=== PATIENT | female | born 1960 | race American Indian/Alaskan Native ===

== ENCOUNTER 2024-08-01 18:36 | Inpatient (IN) | payer MEDICARE, MEDICAID ==
[2024-08-01] MEDS: Sodium Chloride 0.9% 1,000 ML IV ONE ×2 (18:55→21:00)
[2024-08-01 19:00] LABS: BASOPHILS ABSOLUTE AUTO 0.07 10^3/uL (0.00-0.50); BASOPHILS PERCENT AUTO 1.1 % (0-1); EOSINOPHILS ABSOLUTE AUTO 0.23 10^3/uL (0.00-1.50); EOSINOPHILS PERCENT AUTO 3.5 % (0-6); HEMATOCRIT 32.2 % (37.0-47.0); HEMOGLOBIN 10.7 g/dL (12.0-16.0); IMMATURE GRAN ABSOLUTE AUTO 0.01 10^3/uL (0.00-0.49); IMMATURE GRAN PERCENT AUTO 0.2 % (0.0-4.9); LYMPHOCYTES ABSOLUTE AUTO 1.44 10^3/uL (0.60-5.00); LYMPHOCYTES PERCENT AUTO 21.9 % (24-44); MEAN CORPUSCULAR HGB CONC 33.2 g/dL (32.0-36.0); MEAN CORPUSCULAR VOLUME 90.2 fL (83.0-97.0); MONOCYTES ABSOLUTE AUTO 0.59 10^3/uL (0.00-1.50); NEUTROPHILS ABSOLUTE AUTO 4.23 x10^3/uL (1.80-8.00); NEUTROPHILS PERCENT AUTO 64.3 % (41-71); PLATELET COUNT,PLT 89 10^3/uL (150-400); RED BLOOD CELL COUNT 3.57 x10^6/uL (4.00-5.50); WHITE BLOOD CELL COUNT,WBC 6.6 10^3/uL (4.0-11.0)
[2024-08-01 19:19] LABS: ALBUMIN 1.4 g/dL (3.4-5.0); ALKALINE PHOSPHATASE 313 U/L (46-116); BILIRUBIN TOTAL 3.5 mg/dL (0.0-1.0); BLOOD UREA NITROGEN,BUN 26 mg/dL (7-18); C-REACTIVE PROTEIN 1.65 mg/dL (<=0.50); CALCIUM 8.7 mg/dL (8.4-10.1); CARBON DIOXIDE,CO2 20 mmol/L (21-32); CHLORIDE,CL 109 mEq/L (98-106); GLUCOSE RANDOM 130 mg/dL (75-99); LIPASE 51 U/L (16-77); POTASSIUM,K 3.4 mEq/L (3.5-5.0); SODIUM,NA 140 mEq/L (136-145)
[2024-08-01 19:21] LABS: ALANINE AMINOTRANSFERASE,ALT 359 U/L (12-78); ASPARTATE AMNIOTRANSFERASE,AST 394 U/L (15-37); CREATININE 2.9 mg/dL (0.6-1.0); ESTIMATED GFR 17 mL/min (>=60)
[2024-08-02] MEDS ORDERED: Acetaminophen 325 MG Tab PO PRN (01:02)
[2024-08-02] MEDS: Sodium Chloride 0.9% 1,000 ML IV SCH (01:43)
[2024-08-02] MEDS: Pantoprazole 40 MG Tab.CR PO SCH (06:20)
[2024-08-02] MEDS ORDERED: Formoterol/Mometasone 200-5 MCG 8.8 GM Inhaler IH SCH (08:00)
[2024-08-02] MEDS ORDERED: GABAPENTIN 600 MG PO SCH (08:00)
[2024-08-02 08:12] LABS: BASOPHILS ABSOLUTE AUTO 0.04 10^3/uL (0.00-0.50); BASOPHILS PERCENT AUTO 0.7 % (0-1); EOSINOPHILS ABSOLUTE AUTO 0.33 10^3/uL (0.00-1.50); EOSINOPHILS PERCENT AUTO 5.9 % (0-6); HEMATOCRIT 28.8 % (37.0-47.0); HEMOGLOBIN 9.5 g/dL (12.0-16.0); IMMATURE GRAN ABSOLUTE AUTO 0.01 10^3/uL (0.00-0.49); IMMATURE GRAN PERCENT AUTO 0.2 % (0.0-4.9); LYMPHOCYTES ABSOLUTE AUTO 1.11 10^3/uL (0.60-5.00); LYMPHOCYTES PERCENT AUTO 19.7 % (24-44); MEAN CORPUSCULAR HEMOGLOBIN 30.1 pg (27.0-32.0); MEAN CORPUSCULAR VOLUME 91.1 fL (83.0-97.0); MONOCYTES PERCENT AUTO 8.9 % (0-10); NEUTROPHILS ABSOLUTE AUTO 3.64 x10^3/uL (1.80-8.00); NEUTROPHILS PERCENT AUTO 64.6 % (41-71); PLATELET COUNT,PLT 74 10^3/uL (150-400); RED BLOOD CELL COUNT 3.16 x10^6/uL (4.00-5.50); WHITE BLOOD CELL COUNT,WBC 5.6 10^3/uL (4.0-11.0)
[2024-08-02 08:46] LABS: C-REACTIVE PROTEIN 1.49 mg/dL (<=0.50); CALCIUM 8.1 mg/dL (8.4-10.1); EST CRCL DRUG DOSING (CG) 16.21 mL/min; POTASSIUM,K 3.7 mEq/L (3.5-5.0); PROTEIN TOTAL,TP 8.1 g/dL (6.4-8.2)
[2024-08-02] MEDS: Lisinopril 20 MG Tab PO SCH (08:46)
[2024-08-02] MEDS: amLODIPine 10 MG Tab PO SCH (08:46)
[2024-08-02 08:50] LABS: CREATININE 2.7 mg/dL (0.6-1.0)
[2024-08-02 09:22] LABS: APPEARANCE,URINE SLIGHTLY CLOUDY (CLEAR); COLOR,URINE AMBER (YELLOW); GLUCOSE,URINE NEGATIVE (NEGATIVE); KETONES,URINE NEGATIVE (NEGATIVE); LEUKOCYTE ESTERASE,URINE SMALL (NEGATIVE); NITRITE,URINE NEGATIVE (NEGATIVE); OCCULT BLOOD,URINE NEGATIVE (NEGATIVE); PH,URINE 5.5 (4.5-8.0); PROTEIN,URINE 30 mg/dL (NEGATIVE); UROBILINOGEN,URINE >=8.0 EU/dL (0.2-1.0)
[2024-08-02 09:24] LABS: BILIRUBIN,URINE SMALL (NEGATIVE)
[2024-08-02 09:29] LABS: BACTERIA,URINE MANY /HPF (NOT SEEN); EPITHELIAL CELLS,URINE FEW /HPF (NOT SEEN); WBC,URINE 40-50 /HPF (0-5)
[2024-08-02] MEDS: Rosuvastatin 10 MG Tab PO SCH (12:02)
[2024-08-02] MEDS: Gabapentin 300 MG Cap PO SCH (13:03)
[2024-08-02] MEDS: cefTRIAXone 1 GM Vial IVPUSH SCH (14:16)
[2024-08-03 09:15] LABS: BASOPHILS ABSOLUTE AUTO 0.07 10^3/uL (0.00-0.50); BASOPHILS PERCENT AUTO 1.2 % (0-1); EOSINOPHILS ABSOLUTE AUTO 0.38 10^3/uL (0.00-1.50); EOSINOPHILS PERCENT AUTO 6.7 % (0-6); HEMATOCRIT 29.7 % (37.0-47.0); HEMOGLOBIN 9.9 g/dL (12.0-16.0); IMMATURE GRAN ABSOLUTE AUTO 0.01 10^3/uL (0.00-0.49); IMMATURE GRAN PERCENT AUTO 0.2 % (0.0-4.9); LYMPHOCYTES ABSOLUTE AUTO 1.69 10^3/uL (0.60-5.00); LYMPHOCYTES PERCENT AUTO 29.9 % (24-44); MEAN CORPUSCULAR HEMOGLOBIN 30.3 pg (27.0-32.0); MEAN CORPUSCULAR HGB CONC 33.3 g/dL (32.0-36.0); MEAN CORPUSCULAR VOLUME 90.8 fL (83.0-97.0); MONOCYTES ABSOLUTE AUTO 0.45 10^3/uL (0.00-1.50); NEUTROPHILS ABSOLUTE AUTO 3.05 x10^3/uL (1.80-8.00); PLATELET COUNT,PLT 66 10^3/uL (150-400); RED BLOOD CELL COUNT 3.27 x10^6/uL (4.00-5.50); WHITE BLOOD CELL COUNT,WBC 5.7 10^3/uL (4.0-11.0)
[2024-08-03 09:32] LABS: C-REACTIVE PROTEIN 1.45 mg/dL (<=0.50); CALCIUM 8.1 mg/dL (8.4-10.1); CREATININE 2.4 mg/dL (0.6-1.0); EST CRCL DRUG DOSING (CG) 18.24 mL/min; POTASSIUM,K 3.9 mEq/L (3.5-5.0); PROTEIN TOTAL,TP 8.1 g/dL (6.4-8.2)
[2024-08-03] MEDS ORDERED: Albuterol 0.083% 2.5 MG/3 ML Neb Soln INH PRN (10:42)
[2024-08-03] MEDS: Sodium Chloride 0.9% 1,000 ML IV SCH (18:48)
[2024-08-03] MEDS: Sertraline 25 MG Tab PO SCH (19:39)
[2024-08-03 23:41] LABS: AMMONIA 128 umol/L (6-47)
[2024-08-04 09:02] LABS: BASOPHILS ABSOLUTE AUTO 0.04 10^3/uL (0.00-0.50); BASOPHILS PERCENT AUTO 0.7 % (0-1); EOSINOPHILS ABSOLUTE AUTO 0.39 10^3/uL (0.00-1.50); EOSINOPHILS PERCENT AUTO 7.3 % (0-6); HEMATOCRIT 26.3 % (37.0-47.0); HEMOGLOBIN 8.9 g/dL (12.0-16.0); IMMATURE GRAN ABSOLUTE AUTO 0.01 10^3/uL (0.00-0.49); IMMATURE GRAN PERCENT AUTO 0.2 % (0.0-4.9); LYMPHOCYTES ABSOLUTE AUTO 1.39 10^3/uL (0.60-5.00); LYMPHOCYTES PERCENT AUTO 25.9 % (24-44); MEAN CORPUSCULAR HEMOGLOBIN 30.4 pg (27.0-32.0); MEAN CORPUSCULAR HGB CONC 33.8 g/dL (32.0-36.0); MEAN CORPUSCULAR VOLUME 89.8 fL (83.0-97.0); MONOCYTES ABSOLUTE AUTO 0.45 10^3/uL (0.00-1.50); MONOCYTES PERCENT AUTO 8.4 % (0-10); NEUTROPHILS ABSOLUTE AUTO 3.08 x10^3/uL (1.80-8.00); NEUTROPHILS PERCENT AUTO 57.5 % (41-71); PLATELET COUNT,PLT 56 10^3/uL (150-400); RED BLOOD CELL COUNT 2.93 x10^6/uL (4.00-5.50); WHITE BLOOD CELL COUNT,WBC 5.4 10^3/uL (4.0-11.0)
[2024-08-04 10:32] LABS: BILIRUBIN TOTAL 2.9 mg/dL (0.0-1.0); C-REACTIVE PROTEIN 1.22 mg/dL (<=0.50); CREATININE 2.2 mg/dL (0.6-1.0); EST CRCL DRUG DOSING (CG) 19.89 mL/min; POTASSIUM,K 3.8 mEq/L (3.5-5.0); PROTEIN TOTAL,TP 7.1 g/dL (6.4-8.2)
[2024-08-04] MEDS: Lidocaine 4% 1 each Patch TOP PRN (10:47)
[2024-08-04] MEDS: Furosemide 20 MG/2 ML VIAL IVPUSH ONE (14:07)
[2024-08-04] MEDS: Lactulose Soln 10 GM/15 ML 30 ML UD Cup PO SCH (14:07)
[2024-08-04 15:58] LABS: ALBUMIN 1.1 g/dL (3.4-5.0)
[2024-08-04 16:27] LABS: ALBUMIN 1.4 g/dL (3.4-5.0)
[2024-08-05 07:47] LABS: BASOPHILS ABSOLUTE AUTO 0.04 10^3/uL (0.00-0.50); BASOPHILS PERCENT AUTO 0.6 % (0-1); EOSINOPHILS ABSOLUTE AUTO 0.21 10^3/uL (0.00-1.50); HEMATOCRIT 26.9 % (37.0-47.0); HEMOGLOBIN 8.9 g/dL (12.0-16.0); IMMATURE GRAN ABSOLUTE AUTO 0.01 10^3/uL (0.00-0.49); IMMATURE GRAN PERCENT AUTO 0.1 % (0.0-4.9); LYMPHOCYTES ABSOLUTE AUTO 0.99 10^3/uL (0.60-5.00); LYMPHOCYTES PERCENT AUTO 14.1 % (24-44); MEAN CORPUSCULAR HEMOGLOBIN 29.9 pg (27.0-32.0); MEAN CORPUSCULAR HGB CONC 33.1 g/dL (32.0-36.0); MEAN CORPUSCULAR VOLUME 90.3 fL (83.0-97.0); MONOCYTES ABSOLUTE AUTO 0.64 10^3/uL (0.00-1.50); MONOCYTES PERCENT AUTO 9.1 % (0-10); NEUTROPHILS ABSOLUTE AUTO 5.14 x10^3/uL (1.80-8.00); NEUTROPHILS PERCENT AUTO 73.1 % (41-71); PLATELET COUNT,PLT 65 10^3/uL (150-400); RED BLOOD CELL COUNT 2.98 x10^6/uL (4.00-5.50)
[2024-08-05 08:01] LABS: ALBUMIN 1.2 g/dL (3.4-5.0); BILIRUBIN TOTAL 3.8 mg/dL (0.0-1.0); CALCIUM 8.2 mg/dL (8.4-10.1); EST CRCL DRUG DOSING (CG) 21.88 mL/min; POTASSIUM,K 3.8 mEq/L (3.5-5.0); PROTEIN TOTAL,TP 7.5 g/dL (6.4-8.2)
[2024-08-05] MEDS: Ondansetron 4 MG/2 ML SDV IV PRN (10:47)
[2024-08-05] MEDS: Furosemide 20 MG/2 ML VIAL IVPUSH ONE (14:42)
[2024-08-05 18:42] LABS: HAV AB IGM Negative (Negative); HBC IGM Negative (Negative); HEP B SURG AG Negative (Negative); HEP C AB BY CIA High Pos (Negative); HEP C AB BY CIA INDEX >11.00 IV
[2024-08-06 07:06] LABS: BASOPHILS ABSOLUTE AUTO 0.06 10^3/uL (0.00-0.50); BASOPHILS PERCENT AUTO 0.9 % (0-1); EOSINOPHILS ABSOLUTE AUTO 0.37 10^3/uL (0.00-1.50); EOSINOPHILS PERCENT AUTO 5.5 % (0-6); HEMATOCRIT 24.7 % (37.0-47.0); HEMOGLOBIN 8.3 g/dL (12.0-16.0); IMMATURE GRAN ABSOLUTE AUTO 0.01 10^3/uL (0.00-0.49); IMMATURE GRAN PERCENT AUTO 0.1 % (0.0-4.9); LYMPHOCYTES ABSOLUTE AUTO 1.26 10^3/uL (0.60-5.00); LYMPHOCYTES PERCENT AUTO 18.6 % (24-44); MEAN CORPUSCULAR HEMOGLOBIN 30.7 pg (27.0-32.0); MEAN CORPUSCULAR HGB CONC 33.6 g/dL (32.0-36.0); MEAN CORPUSCULAR VOLUME 91.5 fL (83.0-97.0); MONOCYTES ABSOLUTE AUTO 0.54 10^3/uL (0.00-1.50); NEUTROPHILS ABSOLUTE AUTO 4.53 x10^3/uL (1.80-8.00); NEUTROPHILS PERCENT AUTO 66.9 % (41-71); PLATELET COUNT,PLT 65 10^3/uL (150-400); WHITE BLOOD CELL COUNT,WBC 6.8 10^3/uL (4.0-11.0)
[2024-08-06 07:27] LABS: ALBUMIN 1.2 g/dL (3.4-5.0); BILIRUBIN TOTAL 3.6 mg/dL (0.0-1.0); CALCIUM 8.2 mg/dL (8.4-10.1); CREATININE 2.1 mg/dL (0.6-1.0); EST CRCL DRUG DOSING (CG) 20.84 mL/min; POTASSIUM,K 3.8 mEq/L (3.5-5.0); PROTEIN TOTAL,TP 7.1 g/dL (6.4-8.2)
[2024-08-06] MEDS: Sertraline 100 MG Tab PO SCH (19:25)
[2024-08-06 19:41] LABS: HEP C QNT BY NAAT (IU/mL) Not Detected; HEP C QNT BY NAAT (log IU/mL) Not Detected log IU/mL; HEP C QNT BY NAAT INTERP Not Detected (Not Detected)
[2024-08-07 08:10] LABS: BASOPHILS ABSOLUTE AUTO 0.05 10^3/uL (0.00-0.50); BASOPHILS PERCENT AUTO 0.7 % (0-1); EOSINOPHILS ABSOLUTE AUTO 0.25 10^3/uL (0.00-1.50); EOSINOPHILS PERCENT AUTO 3.6 % (0-6); HEMATOCRIT 24.3 % (37.0-47.0); HEMOGLOBIN 8.2 g/dL (12.0-16.0); IMMATURE GRAN ABSOLUTE AUTO 0.01 10^3/uL (0.00-0.49); IMMATURE GRAN PERCENT AUTO 0.1 % (0.0-4.9); LYMPHOCYTES ABSOLUTE AUTO 1.31 10^3/uL (0.60-5.00); LYMPHOCYTES PERCENT AUTO 18.9 % (24-44); MEAN CORPUSCULAR HEMOGLOBIN 31.1 pg (27.0-32.0); MEAN CORPUSCULAR HGB CONC 33.7 g/dL (32.0-36.0); MONOCYTES ABSOLUTE AUTO 0.57 10^3/uL (0.00-1.50); MONOCYTES PERCENT AUTO 8.2 % (0-10); NEUTROPHILS ABSOLUTE AUTO 4.73 x10^3/uL (1.80-8.00); NEUTROPHILS PERCENT AUTO 68.5 % (41-71); PLATELET COUNT,PLT 65 10^3/uL (150-400); RED BLOOD CELL COUNT 2.64 x10^6/uL (4.00-5.50); WHITE BLOOD CELL COUNT,WBC 6.9 10^3/uL (4.0-11.0)
[2024-08-07 08:18] LABS: ALBUMIN 1.1 g/dL (3.4-5.0); BILIRUBIN TOTAL 3.5 mg/dL (0.0-1.0); CALCIUM 8.1 mg/dL (8.4-10.1); EST CRCL DRUG DOSING (CG) 21.88 mL/min; POTASSIUM,K 3.9 mEq/L (3.5-5.0); PROTEIN TOTAL,TP 7.1 g/dL (6.4-8.2)
[2024-08-07] MEDS: Ondansetron 4 MG Tab.DIS PO PRN (11:16)
[2024-08-08 09:33] LABS: BASOPHILS ABSOLUTE AUTO 0.04 10^3/uL (0.00-0.50); BASOPHILS PERCENT AUTO 0.7 % (0-1); EOSINOPHILS ABSOLUTE AUTO 0.22 10^3/uL (0.00-1.50); EOSINOPHILS PERCENT AUTO 3.8 % (0-6); HEMATOCRIT 25.2 % (37.0-47.0); HEMOGLOBIN 8.2 g/dL (12.0-16.0); IMMATURE GRAN ABSOLUTE AUTO 0.04 10^3/uL (0.00-0.49); IMMATURE GRAN PERCENT AUTO 0.7 % (0.0-4.9); MEAN CORPUSCULAR HEMOGLOBIN 30.5 pg (27.0-32.0); MEAN CORPUSCULAR HGB CONC 32.5 g/dL (32.0-36.0); MEAN CORPUSCULAR VOLUME 93.7 fL (83.0-97.0); MONOCYTES ABSOLUTE AUTO 0.39 10^3/uL (0.00-1.50); MONOCYTES PERCENT AUTO 6.7 % (0-10); NEUTROPHILS ABSOLUTE AUTO 4.01 x10^3/uL (1.80-8.00); NEUTROPHILS PERCENT AUTO 69.1 % (41-71); PLATELET COUNT,PLT 65 10^3/uL (150-400); RED BLOOD CELL COUNT 2.69 x10^6/uL (4.00-5.50); WHITE BLOOD CELL COUNT,WBC 5.8 10^3/uL (4.0-11.0)
[2024-08-08 09:47] LABS: ALBUMIN 1.2 g/dL (3.4-5.0); BILIRUBIN TOTAL 3.5 mg/dL (0.0-1.0); CALCIUM 8.3 mg/dL (8.4-10.1); CREATININE 1.9 mg/dL (0.6-1.0); EST CRCL DRUG DOSING (CG) 23.04 mL/min; POTASSIUM,K 3.7 mEq/L (3.5-5.0); PROTEIN TOTAL,TP 7.3 g/dL (6.4-8.2)
[2024-08-09 07:24] LABS: BASOPHILS ABSOLUTE AUTO 0.06 10^3/uL (0.00-0.50); EOSINOPHILS ABSOLUTE AUTO 0.23 10^3/uL (0.00-1.50); EOSINOPHILS PERCENT AUTO 3.7 % (0-6); HEMATOCRIT 25.5 % (37.0-47.0); HEMOGLOBIN 8.4 g/dL (12.0-16.0); IMMATURE GRAN ABSOLUTE AUTO 0.05 10^3/uL (0.00-0.49); IMMATURE GRAN PERCENT AUTO 0.8 % (0.0-4.9); LYMPHOCYTES ABSOLUTE AUTO 1.51 10^3/uL (0.60-5.00); LYMPHOCYTES PERCENT AUTO 24.2 % (24-44); MEAN CORPUSCULAR HGB CONC 32.9 g/dL (32.0-36.0); MEAN CORPUSCULAR VOLUME 94.1 fL (83.0-97.0); MONOCYTES ABSOLUTE AUTO 0.53 10^3/uL (0.00-1.50); MONOCYTES PERCENT AUTO 8.5 % (0-10); NEUTROPHILS ABSOLUTE AUTO 3.87 x10^3/uL (1.80-8.00); NEUTROPHILS PERCENT AUTO 61.8 % (41-71); PLATELET COUNT,PLT 69 10^3/uL (150-400); RED BLOOD CELL COUNT 2.71 x10^6/uL (4.00-5.50); WHITE BLOOD CELL COUNT,WBC 6.3 10^3/uL (4.0-11.0)
[2024-08-09 08:02] LABS: ALBUMIN 1.2 g/dL (3.4-5.0); BILIRUBIN TOTAL 3.3 mg/dL (0.0-1.0); C-REACTIVE PROTEIN 1.26 mg/dL (<=0.50); CALCIUM 8.2 mg/dL (8.4-10.1); CREATININE 1.8 mg/dL (0.6-1.0); EST CRCL DRUG DOSING (CG) 24.32 mL/min; POTASSIUM,K 3.9 mEq/L (3.5-5.0)
[2024-08-09] MEDS: traMADol 50 MG Tab PO PRN (10:04)
[2024-08-09 23:41] LABS: AMMONIA 33 umol/L (6-47)
[2024-08-10 05:47] LABS: FERRITIN 203 ng/mL (11-307); IRON 146 ug/dL (35-145); UIBC <55 ug/dL (155-355)
[2024-08-10 07:44] VITALS: BP 102/65; PULSE 63
[2024-08-10 09:43] LABS: BASOPHILS ABSOLUTE AUTO 0.08 10^3/uL (0.00-0.50); BASOPHILS PERCENT AUTO 1.2 % (0-1); EOSINOPHILS ABSOLUTE AUTO 0.35 10^3/uL (0.00-1.50); EOSINOPHILS PERCENT AUTO 5.1 % (0-6); HEMATOCRIT 27.5 % (37.0-47.0); IMMATURE GRAN ABSOLUTE AUTO 0.09 10^3/uL (0.00-0.49); IMMATURE GRAN PERCENT AUTO 1.3 % (0.0-4.9); LYMPHOCYTES ABSOLUTE AUTO 1.89 10^3/uL (0.60-5.00); LYMPHOCYTES PERCENT AUTO 27.7 % (24-44); MEAN CORPUSCULAR HEMOGLOBIN 30.9 pg (27.0-32.0); MEAN CORPUSCULAR HGB CONC 32.7 g/dL (32.0-36.0); MEAN CORPUSCULAR VOLUME 94.5 fL (83.0-97.0); MONOCYTES ABSOLUTE AUTO 0.52 10^3/uL (0.00-1.50); MONOCYTES PERCENT AUTO 7.6 % (0-10); NEUTROPHILS PERCENT AUTO 57.1 % (41-71); PLATELET COUNT,PLT 73 10^3/uL (150-400); RED BLOOD CELL COUNT 2.91 x10^6/uL (4.00-5.50); WHITE BLOOD CELL COUNT,WBC 6.8 10^3/uL (4.0-11.0)
[2024-08-10 10:03] LABS: ALBUMIN 1.4 g/dL (3.4-5.0); BILIRUBIN TOTAL 3.1 mg/dL (0.0-1.0); CALCIUM 8.5 mg/dL (8.4-10.1); CREATININE 1.8 mg/dL (0.6-1.0); EST CRCL DRUG DOSING (CG) 24.32 mL/min; POTASSIUM,K 3.9 mEq/L (3.5-5.0); PROTEIN TOTAL,TP 8.5 g/dL (6.4-8.2)
== END 2024-08-10 15:01 | disposition swing bed (61) | DRG 432 ==
LOC: CC.ED 18:36 → UNDOADMOB 21:30 → CC.MS 21:30 → OBSVTOIN 08-02 11:35 → INTOOBSV 08-02 11:35 → CC.MS 08-02 11:35 → OBSVTOIN 08-03 11:35
PROVIDERS: ADMIT Physician Assistant Medical; ATTEND Physician Assistant Medical
DX: K74.60 Unspecified cirrhosis of liver (principal); K72.00 Acute and subacute hepatic failure without coma; I12.9 Hypertensive chronic kidney disease with stage 1 through stage 4 chronic kidney disease, or unspecified chronic kidney disease; N18.9 Chronic kidney disease, unspecified; N17.9 Acute kidney failure, unspecified; N30.00 Acute cystitis without hematuria; I12.0 Hypertensive chronic kidney disease with stage 5 chronic kidney disease or end stage renal disease; R18.8 Other ascites; Z88.8 Allergy status to other drugs, medicaments and biological substances; N18.4 Chronic kidney disease, stage 4 (severe); F41.8 Other specified anxiety disorders; E86.0 Dehydration; G89.29 Other chronic pain; M54.9 Dorsalgia, unspecified; G47.30 Sleep apnea, unspecified; D63.1 Anemia in chronic kidney disease; K52.9 Noninfective gastroenteritis and colitis, unspecified; I25.2 Old myocardial infarction; J45.909 Unspecified asthma, uncomplicated; Z88.6 Allergy status to analgesic agent; Z95.5 Presence of coronary angioplasty implant and graft; Z90.49 Acquired absence of other specified parts of digestive tract; Z79.899 Other long term (current) drug therapy; Z96.651 Presence of right artificial knee joint; Z98.890 Other specified postprocedural states; Z77.22 Contact with and (suspected) exposure to environmental tobacco smoke (acute) (chronic)
CPT/HCPCS: 36415 ×3; 70450; 71045; 71250; 74176; 80053 ×3; 81001; 82140; 83690; 83735; 84484; 85025 ×3; 86140 ×3; 87086; 87088; 87186; 93005; 93010; 96360; 96361; 99285; A9270 ×5; J0696; J7030 ×6; 76705; 80074; 80143; 82270; 82728; 83540; 83550; 87522; 97110-GP; 97161-GP; G0378; J1940; J2405

== ENCOUNTER 2024-08-10 15:09 | Inpatient (IN) | payer MEDICARE, MEDICAID ==
[2024-08-10] MEDS ORDERED: Lidocaine 4% 1 each Patch TOP PRN (15:18)
[2024-08-10] MEDS ORDERED: Ondansetron 4 MG/2 ML SDV IV PRN (15:18)
[2024-08-10] MEDS ORDERED: Albuterol 0.083% 2.5 MG/3 ML Neb Soln INH PRN (15:18)
[2024-08-10] MEDS: Sertraline 100 MG Tab PO SCH (19:44)
[2024-08-10] MEDS: Lactulose Soln 10 GM/15 ML 30 ML UD Cup PO SCH (19:45)
[2024-08-10] MEDS: Gabapentin 300 MG Cap PO SCH (19:45)
[2024-08-11] MEDS: Pantoprazole 40 MG Tab.CR PO SCH (06:59)
[2024-08-11] MEDS: Ondansetron 4 MG Tab.DIS PO PRN (12:39)
[2024-08-12] MEDS: traMADol 50 MG Tab PO PRN (13:43)
[2024-08-16] MEDS: Albumin Human 25 GM in Premix Bag 1 BAG IV ONE (12:14)
[2024-08-16 12:35] VITALS: BP 122/57; PULSE 82
== END 2024-08-16 13:48 | DRG 948 ==
LOC: UNDOADMIN 15:09 → CC.MS 15:09
PROVIDERS: ADMIT Nurse Practitioner Family; ATTEND Nurse Practitioner Family
PROC: 0W9G3ZZ Drainage of Peritoneal Cavity, Percutaneous Approach (ICD-10-PCS; principal; 2024-08-16)
DX: R53.81 Other malaise (principal); N18.4 Chronic kidney disease, stage 4 (severe); R18.8 Other ascites; K74.60 Unspecified cirrhosis of liver; F41.8 Other specified anxiety disorders; D63.1 Anemia in chronic kidney disease; Z90.49 Acquired absence of other specified parts of digestive tract
CPT/HCPCS: 87070; 97110-GP; 97530-GP; A9270-GY; P9047; U0002

== ENCOUNTER 2024-09-01 11:03 | Emergency (ER) | payer MEDICARE, MEDICAID ==
[2024-09-01 11:18] VITALS: BP 82/38; PULSE 76
[2024-09-01 11:28] LABS: BASOPHILS ABSOLUTE AUTO 0.01 10^3/uL (0.00-0.50); BASOPHILS PERCENT AUTO 0.1 % (0-1); EOSINOPHILS ABSOLUTE AUTO 0.03 10^3/uL (0.00-1.50); EOSINOPHILS PERCENT AUTO 0.2 % (0-6); HEMATOCRIT 26.1 % (37.0-47.0); HEMOGLOBIN 8.5 g/dL (12.0-16.0); IMMATURE GRAN ABSOLUTE AUTO 0.13 10^3/uL (0.00-0.49); IMMATURE GRAN PERCENT AUTO 1.1 % (0.0-4.9); LYMPHOCYTES ABSOLUTE AUTO 0.63 10^3/uL (0.60-5.00); LYMPHOCYTES PERCENT AUTO 5.2 % (24-44); MEAN CORPUSCULAR HEMOGLOBIN 32.1 pg (27.0-32.0); MEAN CORPUSCULAR HGB CONC 32.6 g/dL (32.0-36.0); MEAN CORPUSCULAR VOLUME 98.5 fL (83.0-97.0); MONOCYTES ABSOLUTE AUTO 0.77 10^3/uL (0.00-1.50); MONOCYTES PERCENT AUTO 6.4 % (0-10); NEUTROPHILS ABSOLUTE AUTO 10.48 x10^3/uL (1.80-8.00); PLATELET COUNT,PLT 87 10^3/uL (150-400); RED BLOOD CELL COUNT 2.65 x10^6/uL (4.00-5.50); WHITE BLOOD CELL COUNT,WBC 12.1 10^3/uL (4.0-11.0)
[2024-09-01] MEDS: Ondansetron 4 MG/2 ML SDV IVPUSH PRN (11:32)
[2024-09-01 11:44] LABS: ALBUMIN 1.5 g/dL (3.4-5.0); BILIRUBIN TOTAL 3.1 mg/dL (0.0-1.0); C-REACTIVE PROTEIN 2.27 mg/dL (<=0.50); CALCIUM 8.6 mg/dL (8.4-10.1); EST CRCL DRUG DOSING (CG) 3.79 mL/min; MAGNESIUM 2.9 mg/dL (1.8-2.4); PROTEIN TOTAL,TP 8.2 g/dL (6.4-8.2)
[2024-09-01 11:47] LABS: CREATININE 10.5 mg/dL (0.6-1.0); POTASSIUM,K 6.3 mEq/L (3.5-5.0)
[2024-09-01] MEDS: Sodium Chloride 0.9% 1,000 ML IV ONE ×2 (12:27→13:53)
[2024-09-01] MEDS ORDERED: Sodium Chloride 0.9% 10 ML Syringe FLUSH PRN (12:42)
[2024-09-01] MEDS ORDERED: Calcium Gluconate 10% 1 GM/10 ML SDV IV ONE (12:42)
[2024-09-01] MEDS: 50% Dextrose in Water 50 ML Syringe IV ONE (13:08)
[2024-09-01] MEDS: Insulin Regular, Human 100 Units/ML 3 ML Vial IVPUSH ONE (13:11)
[2024-09-01] MEDS: Sodium Zirconium Cyclosilicate 10 GM Packet PO SCH (13:15)
[2024-09-01] MEDS: Dextrose 10% in Water 500 ML IV SCH (13:16)
[2024-09-01] MEDS ORDERED: Sodium Chloride 0.9% 1,000 ML IV ONE (13:50)
[2024-09-01 21:42] LABS: AMMONIA 81 umol/L (6-47)
== END 2024-09-01 14:40 ==
LOC: CC.ED 11:03
DX: N17.9 Acute kidney failure, unspecified (principal); I10 Essential (primary) hypertension; I25.2 Old myocardial infarction; Z88.8 Allergy status to other drugs, medicaments and biological substances; Z79.899 Other long term (current) drug therapy; Z90.49 Acquired absence of other specified parts of digestive tract
CPT/HCPCS: 36415; 80053; 82140; 82947; 83735; 85025; 86140; 93005; 96361; 96374; 96375; 99285-25; A9270-GY; J1815-GY; J2405; J3490; J7030